=== PATIENT | female | born 1960 | race Caucasian/White ===

== ENCOUNTER 2018-03-27 05:22 | Inpatient (IN) | payer OTHER ==
[2018-03-19 16:17] LABS: CLARITY,URINE SLIGHTLY CLOUDY (Clear); COLOR,URINE YELLOW (Yellow); GLUCOSE, URINE NEGATIVE (Neg); KETONES,URINE NEGATIVE (Neg); LEUKOCYTE ESTERASE ,URINE NEGATIVE (Neg); NITRITES, URINE NEGATIVE (Neg); OCCULT BLOOD,URINE TRACE-INTACT (Neg); PH,URINE 5.5 (4.8-8.0); PROTEIN,URINE NEGATIVE (Neg); UROBILINOGEN,URINE 0.2 E.U/dL (0.2-1.0)
[2018-03-19 16:19] LABS: UA COLLECTION TYPE CLN CATCH MIDSTREAM
[2018-03-19 16:19] LABS: BASOPHILS # (AUTO) 0.1 X10'3 (0-0.2); EOSINOPHILS # (AUTO) 0.2 X10'3 (0-0.9); EOSINOPHILS % (AUTO) 3.6 % (0-6); LYMPHOCYTES # (AUTO) 1.9 X10'3 (1.1-4.8); LYMPHOCYTES % (AUTO) 32.2 % (21-51); MEAN CORPUSCULAR HEMOGLOBIN 29.6 PG (27.0-31.0); MEAN CORPUSCULAR HGB CONC 33.6 % (33.0-36.5); MEAN PLATELET VOLUME 9.2 FL (7.4-10.4); MONOCYTES # (AUTO) 0.4 X10'3 (0-0.9); NEUTROPHILS # (AUTO) 3.3 X10'3 (1.8-7.7); NEUTROPHILS % (AUTO) 56.2 % (42-75); PRE OP HEMATOCRIT 45.4 % (35.0-45.0); PRE OP HEMOGLOBIN 15.3 g/dL (12.0-16.0); PRE OP PLATELET COUNT 308 X10'3 (140-440); RED BLOOD COUNT 5.16 X10'6 (4.20-5.60); RED CELL DISTRIBUTION WIDTH 13.7 % (11.5-14.5)
[2018-03-19 16:22] LABS: BACTERIA,URINE FEW /HPF (Neg); MUCUS STRANDS FEW /LPF (Neg); RBC,URINE 0-2 /HPF (0-2); SQUAMOUS EPITHELIAL CELL,UR MODERATE /LPF (FEW); WBC,URINE 0-4 /HPF (0-4)
[2018-03-19 16:40] LABS: ALBUMIN 3.8 G/DL (3.4-5.0); ALKALINE PHOSPHATASE 173 IU/L (46-116); BLOOD UREA NITROGEN 14 MG/DL (7-18); BUN/CREATININE RATIO 20.6 (6.6-38.0); CALCIUM 8.9 MG/DL (8.5-10.1); CHLORIDE 104 MMOL/L (99-107); CREATININE 0.68 MG/DL (0.40-0.90); PRE OP ALT 41 U/L (30-65); PRE OP ANION GAP 9 (8-16); PRE OP AST 25 U/L (10-37); PRE OP BILIRUB, TOTAL 0.4 MG/DL (0.0-1.0); PRE OP GLUCOSE 92 MG/DL (70-104); PRE OP POTASSIUM 3.8 MMOL/L (3.4-5.1); PRE OP SODIUM 141 MMOL/L (135-145); TOTAL CARBON DIOXIDE 28.1 MMOL/L (24-32); TOTAL PROTEIN 7.6 G/DL (6.4-8.2); eGFR 90 ML/MIN
[2018-03-19 16:41] LABS: PRE OP PROTIME 10.1 SECONDS (9.0-12.0)
[2018-03-27] VITALS (25 sets, daily range): BP systolic 93–127; BP diastolic 45–80
[~2018-03-27] VITALS: Ht 182.9 cm; Wt 111.8 kg
[~2018-03-27 05:22] MED LIST: CELE-193 PO; ringers solution, lacted 1,000 ML IV SCH
[2018-03-27] MEDS ORDERED: ceFAZolin inj. 2,000 MG in dextrose 5%-water 100 ML IV ONE (05:30)
[2018-03-27] MEDS ORDERED: VANCOMYCIN INJ 1000 MG in NORMAL SALINE 250ml IV.SOLN IV ONE (05:30)
[2018-03-27] MEDS ORDERED: famotidine 20mg tablet PO ONE (05:30)
[2018-03-27] MEDS ORDERED: fentaNYL/PF 50MCG/1 ML 2ML syringe ONE (07:26)
[2018-03-27] MEDS ORDERED: MIDAZolam 1mg/ml 10ml vial ONE (07:26)
[2018-03-27] MEDS ORDERED: ROPIVAcaine inj 200 MG in normal saline 100ml IV soln 60 ML IU ONE (07:30)
[2018-03-27] MEDS ORDERED: propofol inj 20 ML IV ONE (07:56)
[2018-03-27] MEDS ORDERED: ondansetron/PF 4mg/2ml inj IV PRN (09:35)
[2018-03-27] MEDS ORDERED: meperidine/PF 25mg/ml syringe IV PRN ×3 (09:35)
[2018-03-27] MEDS ORDERED: proCHLORperazine 10 MG/2 ml inj IV PRN (09:35)
[2018-03-27] MEDS ORDERED: morphine 4 MG/ML inj SYRINge IV PRN ×2 (09:35)
[2018-03-27] MEDS ORDERED: ringers solution, lacted 1,000 ML IV SCH (09:35)
[2018-03-27] MEDS ORDERED: magnesium hydroxide 30ml (MOM) UD suspension PO PRN (10:40)
[2018-03-27] MEDS ORDERED: HYDROcodone/acetaminophen 10/325mg tab PO PRN (10:40)
[2018-03-27] MEDS ORDERED: CADD PCA waste documentation MC PRN (10:40)
[2018-03-27] MEDS ORDERED: bisacodyl 10mg suppository rectal RC PRN (10:40)
[2018-03-27] MEDS ORDERED: diphenhydrAMINE 25mg capsule PO PRN (10:40)
[2018-03-27] MEDS ORDERED: acetaminophen 325mg tablet PO PRN (10:40)
[2018-03-27] MEDS ORDERED: mag hydrox/Alum hydrox/simeth 30ml oral suspension PO PRN (10:40)
[2018-03-27] MEDS ORDERED: naloxone 0.4 mg/ml inj IV PRN (10:40)
[2018-03-27] MEDS ORDERED: metoclopramide 5 mg/ml inj IV PRN (10:40)
[2018-03-27] MEDS ORDERED: ROPIVAcaine 0.2%/PF PAIN PUMP 550 ML IJ SCH (10:52)
--- NOTE | 2018-03-27 10:52 | NUR ---
Received from OR via BED, accompanied by Anesthesiologist DR MORIN and report given by Anesthesiolgist. PT DROWSY, APPROPRIATE, DENIES PAIN, LEFT KNEE W/DRSG, LEG WRAP, ICE PACK CDI, DERMATONE LEVEL T-12. Addendum: 03/27/18 at 1123 by Danna Kenney RN Amended: Links added.
[2018-03-27] MEDS ORDERED: ceFAZolin 1GM/D5W- ADD-VANTAGE 50 ML IV ONE (10:55)
[2018-03-27] MEDS ORDERED: HYDROmorphone/NS 1 mg/ml CADD 50 ML IV SCH (11:00)
[2018-03-27] MEDS: HYDROmorphone/NS 1 mg/ml CADD 50 ML IV SCH ×7 (11:39→23:00)
--- NOTE | 2018-03-27 12:42 | NUR ---
Report called to receiving nurse. Transferred IN STABLE CONDITION via BED ON TELE #15, 1 BAG OF PT Belongings, GLASSES SENT W/PT TO ROOM 4021B, RECEIVING RN AT BEDSIDE TO RECEIVE PT, BLL, CALL LIGHT GIVEN, SIDE RAILS UP X 2, FAMILY AT BEDSIDE. Special Issues communicated to receiving nurse. YES, Addendum: 03/27/18 at 1300 by Danna Kenney RN Amended: Links added.
--- NOTE | 2018-03-27 12:45 | NUR ---
I received report from Danna in Recovery.
[2018-03-27] MEDS: ondansetron/PF 4mg/2ml inj IV PRN (13:21)
--- NOTE | 2018-03-27 14:00 | NUR ---
ON-Q pump setting adjusted to 10 ml/hr due to increased pain of 8 out of 10.
[2018-03-27] MEDS: gabapentin 300mg capsule PO SCH ×2 (15:18→19:52)
[2018-03-27] MEDS: acetaminophen 325mg tablet PO SCH ×2 (15:19→19:53)
[2018-03-27] MEDS: potassium cl 20mEq in 1/2 NS 1,000 ML IV SCH ×2 (16:04→23:30)
--- NOTE | 2018-03-27 17:21 | NUR ---
ON- Q pump adjusted to 12 ml/hr due to increased pain of 8 out of 10.
[2018-03-27] MEDS: HYDROcodone/acetaminophen 10/325mg tab PO PRN (17:34)
--- NOTE | 2018-03-27 18:20 | NUR ---
Patient in room ORTHO 4012. I have received report from TARAS Alanis and had the opportunity to ask questions and assume patient care.
--- NOTE | 2018-03-27 18:29 | NUR ---
Problems reprioritized. Patient report given, questions answered & plan of care reviewed with Tesha GRAJEDA.
[2018-03-27] MEDS: sennosides/docusate sodium tablet PO SCH (19:53)
[2018-03-27] MEDS: ceFAZolin 1GM/D5W- ADD-VANTAGE 50 ML IV SCH (19:53)
[2018-03-27] MEDS ORDERED: vancomycin/NS 1 GM ADD-VANTAGE 250 ML IV SCH (20:00)
[2018-03-27] MEDS: sennosides 8.6mg tablet PO SCH (20:03)
--- NOTE | 2018-03-27 21:00 | NUR ---
Pt. Left foot tangled with nursing.
[2018-03-28] VITALS (9 sets, daily range): BP systolic 90–112; BP diastolic 42–75
[2018-03-28] MEDS: HYDROmorphone/NS 1 mg/ml CADD 50 ML IV SCH ×3 (01:00→05:00)
[2018-03-28] MEDS: potassium cl 20mEq in 1/2 NS 1,000 ML IV SCH ×3 (02:16→17:26)
[2018-03-28] MEDS: acetaminophen 325mg tablet PO SCH (02:17)
[2018-03-28] MEDS: ceFAZolin 1GM/D5W- ADD-VANTAGE 50 ML IV SCH (04:02)
--- NOTE | 2018-03-28 06:05 | NUR ---
Problems reprioritized. Patient report given, questions answered & plan of care reviewed with TARAS Powell.
--- NOTE | 2018-03-28 06:34 | NUR ---
I have received patient report from Tesha GRAJEDA
[2018-03-28 06:39] LABS: BASOPHILS % (AUTO) 0.3 % (0-1); EOSINOPHILS # (AUTO) 0.1 X10'3 (0-0.9); EOSINOPHILS % (AUTO) 1.5 % (0-6); HEMATOCRIT 32.3 % (35.0-45.0); HEMOGLOBIN 11.1 g/dl (12.0-16.0); LYMPHOCYTES # (AUTO) 0.8 X10'3 (1.1-4.8); LYMPHOCYTES % (AUTO) 9.3 % (21-51); MEAN CORPUSCULAR HEMOGLOBIN 30.2 PG (27.0-31.0); MEAN CORPUSCULAR HGB CONC 34.5 g/dL (33.0-36.5); MEAN CORPUSCULAR VOLUME 87.7 FL (78-98); MEAN PLATELET VOLUME 9.2 FL (7.4-10.4); MONOCYTES # (AUTO) 0.6 X10'3 (0-0.9); MONOCYTES % (AUTO) 7.1 % (2-12); NEUTROPHILS # (AUTO) 7.4 X10'3 (1.8-7.7); NEUTROPHILS % (AUTO) 81.8 % (42-75); PLATELET COUNT 196 X10'3 (140-440); RED BLOOD COUNT 3.68 X10'6 (4.20-5.60); RED CELL DISTRIBUTION WIDTH 13.5 % (11.5-14.5); WHITE BLOOD COUNT 9.1 X10'3 (4.5-11.0)
[2018-03-28 06:43] LABS: ANION GAP 6 (8-16); CHLORIDE 104 MMOL/L (99-107); SODIUM 136 MMOL/L (135-145)
[2018-03-28] MEDS: ondansetron/PF 4mg/2ml inj IV PRN (07:17)
[2018-03-28] MEDS: gabapentin 300mg capsule PO SCH ×3 (07:17→20:10)
[2018-03-28] MEDS: multivitamins, therapeutics tablet PO SCH (07:17)
[2018-03-28] MEDS: sennosides/docusate sodium tablet PO SCH ×2 (07:17→20:10)
[2018-03-28] MEDS: HYDROcodone/acetaminophen 10/325mg tab PO PRN ×4 (07:17→20:11)
[2018-03-28] MEDS: enoxaparin 40mg/0.4ml syringe SQ SCH (07:18)
[2018-03-28] MEDS ORDERED: acetaminophen 325mg tablet PO PRN (08:45)
[2018-03-28] MEDS: HYDROmorphone inj. 0.5 MG/0.5 ML DISP.SYRIN IV PRN ×2 (08:52→17:29)
--- NOTE | 2018-03-28 15:22 | NUR ---
Joint replacement consult: Pt seen by SOILA for written/verbal high protein ed. SOILA reviewed high protein needs for wound healing, immune strength, high protein foods, and protein supplementation options. SOILA contact information provided in case of further questions. Pt agrees to taj victoria/ alvaro RYAN; SOILA d/w dietary. Addendum: 03/28/18 at [address] Amended: Links added.
--- NOTE | 2018-03-28 18:11 | NUR ---
Patient in room ORTHO 4012. I have received report from TARAS Powell and had the opportunity to ask questions and assume patient care.
--- NOTE | 2018-03-28 18:33 | NUR ---
I have given patient report to Tesha GRAJEDA
[2018-03-28] MEDS: sennosides 8.6mg tablet PO SCH (21:00)
[2018-03-29] MEDS: potassium cl 20mEq in 1/2 NS 1,000 ML IV SCH ×3 (01:29→23:30)
[2018-03-29] MEDS: HYDROcodone/acetaminophen 10/325mg tab PO PRN ×5 (03:58→20:31)
--- NOTE | 2018-03-29 05:43 | NUR ---
[facility]MOV[facility] AND Sky D/C
--- NOTE | 2018-03-29 06:09 | NUR ---
Problems reprioritized. Patient report given, questions answered & plan of care reviewed with TARAS Powell.
--- NOTE | 2018-03-29 06:21 | NUR ---
I have received patient report from Tesha GRAJEDA
[2018-03-29 06:57] LABS: BASOPHILS % (AUTO) 0.2 % (0-1); EOSINOPHILS % (AUTO) 0.1 % (0-6); HEMATOCRIT 30.7 % (35.0-45.0); HEMOGLOBIN 10.4 g/dl (12.0-16.0); LYMPHOCYTES # (AUTO) 0.6 X10'3 (1.1-4.8); LYMPHOCYTES % (AUTO) 6.6 % (21-51); MEAN CORPUSCULAR HEMOGLOBIN 29.7 PG (27.0-31.0); MEAN CORPUSCULAR HGB CONC 33.9 g/dL (33.0-36.5); MEAN CORPUSCULAR VOLUME 87.6 FL (78-98); MEAN PLATELET VOLUME 9.7 FL (7.4-10.4); MONOCYTES # (AUTO) 0.7 X10'3 (0-0.9); MONOCYTES % (AUTO) 7.8 % (2-12); NEUTROPHILS # (AUTO) 7.7 X10'3 (1.8-7.7); NEUTROPHILS % (AUTO) 85.3 % (42-75); PLATELET COUNT 177 X10'3 (140-440); RED CELL DISTRIBUTION WIDTH 13.6 % (11.5-14.5); WHITE BLOOD COUNT 9.1 X10'3 (4.5-11.0)
[2018-03-29] MEDS: multivitamins, therapeutics tablet PO SCH (08:07)
[2018-03-29] MEDS: enoxaparin 40mg/0.4ml syringe SQ SCH (08:07)
[2018-03-29] MEDS: gabapentin 300mg capsule PO SCH ×3 (08:07→20:31)
[2018-03-29] MEDS: sennosides/docusate sodium tablet PO SCH ×2 (08:07→20:00)
[2018-03-29 10:00] VITALS: BP 111/65
[2018-03-29] MEDS ORDERED: ENOX40DI11 SQ (10:53)
[2018-03-29 18:00] VITALS: BP 94/56
--- NOTE | 2018-03-29 18:30 | NUR ---
Patient in room ORTHO 4012. I have received report from TARAS Powell and had the opportunity to ask questions and assume patient care.
--- NOTE | 2018-03-29 18:33 | NUR ---
I gave patient report to Tesha GRAJEDA
[2018-03-29] MEDS: sennosides 8.6mg tablet PO SCH (20:31)
[2018-03-29 22:00] VITALS: BP 144/54
[2018-03-29] MEDS: diphenhydrAMINE 25mg capsule PO PRN (23:28)
[2018-03-30 06:00] VITALS: BP 113/62
--- NOTE | 2018-03-30 06:09 | NUR ---
Problems reprioritized. Patient report given, questions answered & plan of care reviewed with TARAS Levy.
--- NOTE | 2018-03-30 06:11 | NUR ---
received report from lucas mireles
[2018-03-30 06:41] LABS: BASOPHILS % (AUTO) 0.4 % (0-1); EOSINOPHILS # (AUTO) 0.2 X10'3 (0-0.9); EOSINOPHILS % (AUTO) 2.8 % (0-6); HEMATOCRIT 29.3 % (35.0-45.0); HEMOGLOBIN 10.1 g/dl (12.0-16.0); LYMPHOCYTES # (AUTO) 0.9 X10'3 (1.1-4.8); LYMPHOCYTES % (AUTO) 11.3 % (21-51); MEAN CORPUSCULAR HGB CONC 34.4 g/dL (33.0-36.5); MEAN CORPUSCULAR VOLUME 87.4 FL (78-98); MEAN PLATELET VOLUME 9.3 FL (7.4-10.4); MONOCYTES # (AUTO) 0.7 X10'3 (0-0.9); MONOCYTES % (AUTO) 9.4 % (2-12); NEUTROPHILS # (AUTO) 6.1 X10'3 (1.8-7.7); NEUTROPHILS % (AUTO) 76.1 % (42-75); PLATELET COUNT 175 X10'3 (140-440); RED BLOOD COUNT 3.36 X10'6 (4.20-5.60); RED CELL DISTRIBUTION WIDTH 14.1 % (11.5-14.5)
[2018-03-30] MEDS: multivitamins, therapeutics tablet PO SCH (08:24)
[2018-03-30] MEDS: HYDROcodone/acetaminophen 10/325mg tab PO PRN ×2 (08:24→12:29)
[2018-03-30] MEDS: sennosides/docusate sodium tablet PO SCH (08:25)
[2018-03-30] MEDS: gabapentin 300mg capsule PO SCH ×2 (08:25→12:29)
[2018-03-30] MEDS: enoxaparin 40mg/0.4ml syringe SQ SCH (08:26)
[2018-03-30] MEDS: potassium cl 20mEq in 1/2 NS 1,000 ML IV SCH (08:37)
[2018-03-30 10:00] VITALS: BP 115/61
[2018-03-30] MEDS: diphenhydrAMINE 25mg capsule PO PRN (13:46)
--- NOTE | 2018-03-30 14:30 | NUR ---
pt d/c with instructions, understanding of instructions, and with all belongings including powder packs and extra august dressing in wheelchair accompanied by fam member to private vehicle to f/u w/surgeon
== END 2018-03-30 14:30 | disposition home or self-care (01) | DRG 470 ==
LOC: PAS IN 05:22 → EDSTATUS 07:30 → ORTHO 4S 12:45
PROVIDERS: ADMIT Orthopaedic Surgery; ATTEND Orthopaedic Surgery
PROC: 3E0T3BZ Introduction of Anesthetic Agent into Peripheral Nerves and Plexi, Percutaneous Approach (ICD-10-PCS; 2018-03-27)
PROC: 0SRD0J9 Replacement of Left Knee Joint with Synthetic Substitute, Cemented, Open Approach (ICD-10-PCS; principal; 2018-03-27 07:18)
DX: M17.12 Unilateral primary osteoarthritis, left knee (principal); D62 Acute posthemorrhagic anemia
CPT/HCPCS: 36415; 80051; 80053; 81001; 82948; 85025; 85610; 85730; 87070; 97110; 97116; 97162; 97530; A6250; A6258; A6449; A7000; C1713; C1758; C1776; G0378; J0690; J1170; J1650; J2250; J2405; J2704; J2795; J3010; J3370; J7030; J7060; J7120; Q0163

== ENCOUNTER 2018-11-20 05:26 | Inpatient (IN) | payer OTHER ==
[2018-11-12 11:13] LABS: CLARITY,URINE CLEAR (Clear); COLOR,URINE YELLOW (Yellow); GLUCOSE, URINE NEGATIVE (Neg); KETONES,URINE NEGATIVE (Neg); LEUKOCYTE ESTERASE ,URINE NEGATIVE (Neg); NITRITES, URINE NEGATIVE (Neg); OCCULT BLOOD,URINE NEGATIVE (Neg); PH,URINE 5.5 (4.8-8.0); PROTEIN,URINE NEGATIVE (Neg); UROBILINOGEN,URINE 0.2 E.U/dL (0.2-1.0)
[2018-11-12 11:16] LABS: UA COLLECTION TYPE CLN CATCH MIDSTREAM
[2018-11-12 11:24] LABS: BASOPHILS % (AUTO) 1.1 % (0-1); EOSINOPHILS # (AUTO) 0.1 X10'3 (0-0.9); EOSINOPHILS % (AUTO) 1.8 % (0-6); LYMPHOCYTES # (AUTO) 1.3 X10'3 (1.1-4.8); MEAN CORPUSCULAR HEMOGLOBIN 29.8 PG (27.0-31.0); MEAN CORPUSCULAR HGB CONC 33.9 g/dL (33.0-36.5); MEAN CORPUSCULAR VOLUME 87.9 FL (78-98); MEAN PLATELET VOLUME 8.9 FL (7.4-10.4); MONOCYTES # (AUTO) 0.3 X10'3 (0-0.9); MONOCYTES % (AUTO) 7.2 % (2-12); NEUTROPHILS % (AUTO) 62.9 % (42-75); PRE OP HEMATOCRIT 45.3 % (35.0-45.0); PRE OP HEMOGLOBIN 15.3 g/dL (12.0-16.0); PRE OP PLATELET COUNT 311 X10'3 (140-440); RED BLOOD COUNT 5.15 X10'6 (4.20-5.60); RED CELL DISTRIBUTION WIDTH 14.1 % (11.5-14.5)
[2018-11-12 11:36] LABS: ALBUMIN 3.8 G/DL (3.4-5.0); ALBUMIN/GLOBULIN RATIO 1.1 (1.1-1.5); ALKALINE PHOSPHATASE 145 IU/L (46-116); BLOOD UREA NITROGEN 13 MG/DL (7-18); BUN/CREATININE RATIO 20.6 (6.6-38.0); CALCIUM 8.9 MG/DL (8.5-10.1); CHLORIDE 108 MMOL/L (99-107); CREATININE 0.63 MG/DL (0.40-0.90); PRE OP ALT 42 U/L (30-65); PRE OP ANION GAP 4 (8-16); PRE OP AST 27 U/L (10-37); PRE OP BILIRUB, TOTAL 0.7 MG/DL (0.0-1.0); PRE OP GLUCOSE 79 MG/DL (70-104); PRE OP POTASSIUM 3.9 MMOL/L (3.4-5.1); PRE OP SODIUM 142 MMOL/L (135-145); TOTAL CARBON DIOXIDE 29.7 MMOL/L (24-32); TOTAL PROTEIN 7.3 G/DL (6.4-8.2); eGFR > 90 ML/MIN
[2018-11-20] VITALS (18 sets, daily range): BP systolic 101–137; BP diastolic 49–111
[~2018-11-20] VITALS: Ht 182.9 cm; Wt 110.0 kg
[~2018-11-20 05:26] MED LIST changes: +CALC500T11 PO; -CELE-193 PO; +HALLS COUGH DROPS; +HYDR-4353 PO; +MV-M1TAB32; +NAPR-56 PO; +ZICAM; -ringers solution, lacted 1,000 ML IV SCH
[2018-11-20] MEDS ORDERED: famotidine 20mg tablet PO ONE (05:30)
[2018-11-20] MEDS ORDERED: cefazolin/dext.iso 2gm/50ml 50 ML IV ONE (05:30)
[2018-11-20] MEDS ORDERED: ringers solution, lacted 1,000 ML IV SCH ×2 (05:30→09:08)
[2018-11-20] MEDS ORDERED: VANCOMYCIN INJ 1000 MG in NORMAL SALINE 250ml IV.SOLN IV ONE (05:30)
[2018-11-20] MEDS ORDERED: LIDOcaine 1% (10mg/ml) 2ml vial ONE (05:43)
[2018-11-20] MEDS ORDERED: ketorolac trometh. 30mg/ml inj. ONE (06:50)
[2018-11-20] MEDS ORDERED: ROPIVAcaine 0.5% (5mg/ml) 30ml vial ONE ×2 (06:50→09:59)
[2018-11-20] MEDS ORDERED: MIDAZolam 1mg/ml 10ml vial ONE (07:15)
[2018-11-20] MEDS ORDERED: fentaNYL/PF 50MCG/1 ML 2ML syringe ONE (07:16)
[2018-11-20] MEDS ORDERED: LIDOcaine 1%/PF 5ML 10 MG/ML VIAL ONE (07:30)
[2018-11-20] MEDS ORDERED: propofol inj 20 ML IV ONE (07:30)
[2018-11-20] MEDS ORDERED: meperidine/PF 25mg/ml syringe IV PRN ×3 (09:10)
[2018-11-20] MEDS ORDERED: morphine 4 MG/ML inj SYRINge IV PRN ×2 (09:10)
[2018-11-20] MEDS ORDERED: ondansetron/PF 4mg/2ml inj IV PRN ×2 (09:10→10:45)
[2018-11-20] MEDS ORDERED: proCHLORperazine 10 MG/2 ml inj IV PRN (09:10)
[2018-11-20] MEDS ORDERED: ceFAZolin 1000mg inj ONE (09:59)
[2018-11-20] MEDS ORDERED: dexamethasone sod phosphate 4mg/ml inj. ONE (09:59)
--- NOTE | 2018-11-20 10:40 | NUR ---
Received from OR via BED , accompanied by Anesthesiologist DR DIAL and report given by Anesthesiolgist. PATIENT WAKING UP, DENIES PAIN, V/S WNL, NEUROVASCULAR CHECKS INTACT, 18G PIV RUE , HEATHER DRESSING TO RIGHT KNEE CDI W/ HV AND COLD POWDER PACK ANDW/ SCD ON. F/C DRAINING CLEAR YELLOW URINE. SENSATION T-10 .
[2018-11-20] MEDS ORDERED: diphenhydrAMINE 25mg capsule PO PRN ×2 (10:45)
[2018-11-20] MEDS ORDERED: metoclopramide 5 mg/ml inj IV PRN (10:45)
[2018-11-20] MEDS ORDERED: magnesium hydroxide 30ml (MOM) UD suspension PO PRN (10:45)
[2018-11-20] MEDS ORDERED: mag hydrox/Alum hydrox/simeth 30ml oral suspension PO PRN (10:45)
[2018-11-20] MEDS ORDERED: bisacodyl 10mg suppository rectal RC PRN (10:45)
[2018-11-20] MEDS ORDERED: acetaminophen 325mg tablet PO PRN (10:45)
[2018-11-20] MEDS ORDERED: HYDROcodone/acetaminophen 10/325mg tab PO PRN (10:45)
[2018-11-20] MEDS: ROPIVAcaine 0.2%/PF PAIN PUMP 550 ML IJ SCH (11:18)
--- NOTE | 2018-11-20 11:30 | NUR ---
PATIENT A&OX4, DENIES PAIN, V/S WNL, NEUROVASCULAR CHECKS INTACT, 18G PIV RUE , HEATHER DRESSING TO RIGHT KNEE CDI W/ HV AND COLD POWDER PACK AND W/ ON QUE BALL AT 6MG/HR SCD ON. F/C DRAINING CLEAR YELLOW URINE. SENSATION T-10 .PATIENT TAKEN TO ORTHO ON TELE WITH ALL BELONGINGS AND HOOKED UP TO MONITORS IN ROOM AND REPORT GIVEN TO GENERAL MAINTENANCE ENGINEER WHO HAS TAKEN OVER PATIENT CARE. .
[2018-11-20] MEDS: HYDROcodone/acetaminophen 10/325mg tab PO PRN ×3 (11:58→21:21)
[2018-11-20] MEDS: gabapentin 300mg capsule PO SCH ×2 (14:23→19:49)
[2018-11-20] MEDS: potassium cl 20mEq in 1/2 NS 1,000 ML IV SCH ×2 (16:03→18:43)
[2018-11-20] MEDS: ceFAZolin 1GM/D5W- ADD-VANTAGE 50 ML IV SCH ×2 (16:06→23:53)
[2018-11-20] MEDS: HYDROmorphone inj. 0.5 MG/0.5 ML DISP.SYRIN IV PRN (17:26)
--- NOTE | 2018-11-20 18:30 | NUR ---
Patient in room ORTHO 4012. I have received report from TARAS Perez and had the opportunity to ask questions and assume patient care.
[2018-11-20] MEDS: sennosides 8.6mg tablet PO SCH (19:49)
[2018-11-20] MEDS: ascorbic acid 500mg tablet PO SCH (19:49)
[2018-11-20] MEDS ORDERED: vancomycin/NS 1 GM ADD-VANTAGE 250 ML IV SCH (20:00)
[2018-11-21] VITALS (7 sets, daily range): BP systolic 94–115; BP diastolic 44–52
[2018-11-21] MEDS: potassium cl 20mEq in 1/2 NS 1,000 ML IV SCH ×3 (03:34→18:43)
[2018-11-21] MEDS ORDERED: normal saline 1000ml 1,000 ML IVB ONE (06:44)
--- NOTE | 2018-11-21 06:46 | NUR ---
Problems reprioritized. Patient report given, questions answered & plan of care reviewed with TARAS Winters.
--- NOTE | 2018-11-21 06:55 | NUR ---
Patient in room ORTHO 4012. I have received report from Tesha GRAJEDA and had the opportunity to ask questions and assume patient care.
[2018-11-21 06:57] LABS: BASOPHILS % (AUTO) 0.4 % (0-1); EOSINOPHILS % (AUTO) 0.1 % (0-6); HEMOGLOBIN 9.8 g/dl (12.0-16.0); LYMPHOCYTES # (AUTO) 0.5 X10'3 (1.1-4.8); LYMPHOCYTES % (AUTO) 6.1 % (21-51); MEAN CORPUSCULAR HEMOGLOBIN 30.1 PG (27.0-31.0); MEAN CORPUSCULAR HGB CONC 33.9 g/dL (33.0-36.5); MEAN CORPUSCULAR VOLUME 88.7 FL (78-98); MEAN PLATELET VOLUME 8.9 FL (7.4-10.4); MONOCYTES # (AUTO) 0.5 X10'3 (0-0.9); MONOCYTES % (AUTO) 5.9 % (2-12); NEUTROPHILS # (AUTO) 7.4 X10'3 (1.8-7.7); NEUTROPHILS % (AUTO) 87.5 % (42-75); PLATELET COUNT 191 X10'3 (140-440); RED BLOOD COUNT 3.27 X10'6 (4.20-5.60); RED CELL DISTRIBUTION WIDTH 13.5 % (11.5-14.5); WHITE BLOOD COUNT 8.5 X10'3 (4.5-11.0)
[2018-11-21 07:08] LABS: ANION GAP 5 (8-16); CHLORIDE 106 MMOL/L (99-107); POTASSIUM 4.5 MMOL/L (3.5-5.1); SODIUM 139 MMOL/L (135-145); TOTAL CARBON DIOXIDE 28.4 MMOL/L (24-32)
[2018-11-21] MEDS: multivitamins, therapeutics tablet PO SCH (08:10)
[2018-11-21] MEDS: ascorbic acid 500mg tablet PO SCH ×2 (08:10→20:56)
[2018-11-21] MEDS: gabapentin 300mg capsule PO SCH ×3 (08:10→20:55)
[2018-11-21] MEDS: enoxaparin 40mg/0.4ml syringe SQ SCH (08:11)
[2018-11-21] MEDS: HYDROcodone/acetaminophen 10/325mg tab PO PRN ×2 (13:24→17:14)
[2018-11-21] MEDS: HYDROmorphone inj. 0.5 MG/0.5 ML DISP.SYRIN IV PRN (14:55)
--- NOTE | 2018-11-21 18:23 | NUR ---
Problems reprioritized. Patient report given, questions answered & plan of care reviewed with Sherry GRAJEDA.
[2018-11-21] MEDS: celeCOXIB 100mg capsule PO SCH (20:56)
[2018-11-21] MEDS: sennosides 8.6mg tablet PO SCH (20:56)
[2018-11-22] MEDS: potassium cl 20mEq in 1/2 NS 1,000 ML IV SCH ×2 (00:06→07:57)
[2018-11-22] MEDS: HYDROcodone/acetaminophen 10/325mg tab PO PRN ×6 (00:08→21:19)
[2018-11-22 06:00] VITALS: BP 120/51
[2018-11-22 06:17] LABS: BASOPHILS % (AUTO) 0.8 % (0-1); EOSINOPHILS # (AUTO) 0.2 X10'3 (0-0.9); EOSINOPHILS % (AUTO) 3.3 % (0-6); HEMATOCRIT 24.9 % (35.0-45.0); HEMOGLOBIN 8.6 g/dl (12.0-16.0); LYMPHOCYTES # (AUTO) 0.8 X10'3 (1.1-4.8); LYMPHOCYTES % (AUTO) 13.1 % (21-51); MEAN CORPUSCULAR HEMOGLOBIN 30.5 PG (27.0-31.0); MEAN CORPUSCULAR HGB CONC 34.6 g/dL (33.0-36.5); MEAN CORPUSCULAR VOLUME 88.1 FL (78-98); MEAN PLATELET VOLUME 8.8 FL (7.4-10.4); MONOCYTES # (AUTO) 0.8 X10'3 (0-0.9); MONOCYTES % (AUTO) 12.7 % (2-12); NEUTROPHILS # (AUTO) 4.1 X10'3 (1.8-7.7); NEUTROPHILS % (AUTO) 70.1 % (42-75); PLATELET COUNT 164 X10'3 (140-440); RED BLOOD COUNT 2.83 X10'6 (4.20-5.60); RED CELL DISTRIBUTION WIDTH 13.6 % (11.5-14.5); WHITE BLOOD COUNT 5.9 X10'3 (4.5-11.0)
--- NOTE | 2018-11-22 06:30 | NUR ---
Problems reprioritized. Patient report given, questions answered & plan of care reviewed with TARAS De.
--- NOTE | 2018-11-22 06:46 | NUR ---
Patient in room ORTHO 4012. I have received report from Sherry GRAJEDA and had the opportunity to ask questions and assume patient care.
[2018-11-22] MEDS: calcium carbonate 500mg chew tablet PO PRN ×2 (07:55→21:18)
[2018-11-22] MEDS: ascorbic acid 500mg tablet PO SCH ×2 (07:55→21:20)
[2018-11-22] MEDS: celeCOXIB 100mg capsule PO SCH ×2 (07:56→21:20)
[2018-11-22] MEDS: multivitamins, therapeutics tablet PO SCH (07:56)
[2018-11-22] MEDS: enoxaparin 40mg/0.4ml syringe SQ SCH (07:56)
[2018-11-22] MEDS: gabapentin 300mg capsule PO SCH ×3 (07:56→21:20)
[2018-11-22 10:00] VITALS: BP 108/71
[2018-11-22] MEDS: ROPIVAcaine 0.2%/PF PAIN PUMP 550 ML IJ SCH (12:19)
--- NOTE | 2018-11-22 15:08 | NUR ---
Joint replacement: Pt seen at bedside provided with written and verbal protein education, written alternative write in menu, and RD contact information. Pt endorses a good appetite despite documented 25-50% PO intake of meal with 100% PO intake of milk on regular diet. Pt with food requests for upcoming meals that were d/w dietary. 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 Pt reports constipation with LBM 11/19 receiving routine bowel care however declines nutrition therapy for constipation at this time. Will continue to follow. Addendum: 11/22/18 at [address] Amended: Links added.
[2018-11-22 18:00] VITALS: BP 114/58
--- NOTE | 2018-11-22 18:41 | NUR ---
Problems reprioritized. Patient report given, questions answered & plan of care reviewed with Ronald GRAJEDA .
[2018-11-22] MEDS: sennosides 8.6mg tablet PO SCH (21:20)
[2018-11-22 22:00] VITALS: BP 105/51
[2018-11-23 07:28] LABS: BASOPHILS % (AUTO) 0.7 % (0-1); EOSINOPHILS # (AUTO) 0.2 X10'3 (0-0.9); HEMATOCRIT 27.6 % (35.0-45.0); HEMOGLOBIN 9.6 g/dl (12.0-16.0); LYMPHOCYTES # (AUTO) 0.8 X10'3 (1.1-4.8); LYMPHOCYTES % (AUTO) 11.9 % (21-51); MEAN CORPUSCULAR HEMOGLOBIN 30.4 PG (27.0-31.0); MEAN CORPUSCULAR HGB CONC 34.7 g/dL (33.0-36.5); MEAN CORPUSCULAR VOLUME 87.8 FL (78-98); MEAN PLATELET VOLUME 8.7 FL (7.4-10.4); MONOCYTES # (AUTO) 0.6 X10'3 (0-0.9); NEUTROPHILS # (AUTO) 4.9 X10'3 (1.8-7.7); NEUTROPHILS % (AUTO) 75.4 % (42-75); PLATELET COUNT 230 X10'3 (140-440); RED BLOOD COUNT 3.14 X10'6 (4.20-5.60); RED CELL DISTRIBUTION WIDTH 13.4 % (11.5-14.5); WHITE BLOOD COUNT 6.5 X10'3 (4.5-11.0)
[2018-11-23] MEDS: gabapentin 300mg capsule PO SCH ×2 (09:04→13:39)
[2018-11-23] MEDS: ascorbic acid 500mg tablet PO SCH (09:04)
[2018-11-23] MEDS: multivitamins, therapeutics tablet PO SCH (09:04)
[2018-11-23] MEDS: celeCOXIB 100mg capsule PO SCH (09:05)
[2018-11-23] MEDS: enoxaparin 40mg/0.4ml syringe SQ SCH (09:06)
[2018-11-23] MEDS: HYDROcodone/acetaminophen 10/325mg tab PO PRN (15:30)
--- NOTE | 2018-11-23 16:30 | NUR ---
DISCHARGE: VSS, HR in 90s, administered pain medications for 7/10 for ride home. Education on removal of HEATHER & ONQ pump. Written and verbal. Dressing to R hip, R knee CDI, no S/S infection noted. x2 powder packs DCd w/pt. Pt verbalized understanding. Pt denies SOB, resp distress, N/V, vertigo at DC. Escorted HERNAN in WC by [facility] staff & spouse. pt transferred safely into personal vehicle home. pt thanked [facility] staff for her care.
== END 2018-11-23 16:30 | disposition home or self-care (01) | DRG 470 ==
LOC: PAS IN 05:26 → EDSTATUS 07:30 → ORTHO 4S 11:30
PROVIDERS: ADMIT Orthopaedic Surgery; ATTEND Orthopaedic Surgery
PROC: 3E0T3BZ Introduction of Anesthetic Agent into Peripheral Nerves and Plexi, Percutaneous Approach (ICD-10-PCS; 2018-11-20)
PROC: 0SRC06Z Replacement of Right Knee Joint with Oxidized Zirconium on Polyethylene Synthetic Substitute, Open Approach (ICD-10-PCS; principal; 2018-11-20 07:12)
DX: M17.11 Unilateral primary osteoarthritis, right knee (principal); D62 Acute posthemorrhagic anemia; G89.4 Chronic pain syndrome; M54.2 Cervicalgia; M54.5 Low back pain; J44.9 Chronic obstructive pulmonary disease, unspecified; G43.909 Migraine, unspecified, not intractable, without status migrainosus; M54.16 Radiculopathy, lumbar region; E66.8 Other obesity; Z88.8 Allergy status to other drugs, medicaments and biological substances; Z68.32 Body mass index [BMI] 32.0-32.9, adult
CPT/HCPCS: Z7506; Z7508; 36415; 80051; 80053; 81003; 82948; 85025; 87081; 93005; 97110; 97116; 97162; 97530; A4618; A7000; C1713; C1758; C1776; G0378; J0690; J1100; J1170; J1650; J1885; J2001; J2250; J2405; J2704; J2795; J3010; J3370; J3480; J7030; J7120

== ENCOUNTER 2018-11-28 18:57 | Emergency (ER) | payer OTHER ==
[~2018-11-28] VITALS: Ht 182.9 cm; Wt 109.1 kg
[2018-11-28] MEDS ORDERED: fentaNYL/PF 50MCG/1 ML 2ML syringe IV ONE ×2 (20:05→22:00)
[2018-11-28] MEDS ORDERED: ondansetron/PF 4mg/2ml inj IV ONE (20:05)
[2018-11-28 20:20] LABS: BASOPHILS # (AUTO) 0.1 X10'3 (0-0.2); BASOPHILS % (AUTO) 0.8 % (0-1); EOSINOPHILS # (AUTO) 0.3 X10'3 (0-0.9); MONOCYTES # (AUTO) 0.9 X10'3 (0-0.9); NEUTROPHILS # (AUTO) 9.8 X10'3 (1.8-7.7)
[2018-11-28 20:22] LABS: EOSINOPHILS % (AUTO) 2.2 % (0-6); HEMATOCRIT 34.2 % (35.0-45.0); HEMOGLOBIN 11.4 g/dl (12.0-16.0); LYMPHOCYTES # (AUTO) 1.4 X10'3 (1.1-4.8); LYMPHOCYTES % (AUTO) 11.5 % (21-51); MEAN CORPUSCULAR HEMOGLOBIN 29.4 PG (27.0-31.0); MEAN CORPUSCULAR HGB CONC 33.4 g/dL (33.0-36.5); MEAN CORPUSCULAR VOLUME 88.1 FL (78-98); MEAN PLATELET VOLUME 7.8 FL (7.4-10.4); MONOCYTES % (AUTO) 7.3 % (2-12); NEUTROPHILS % (AUTO) 78.2 % (42-75); PLATELET COUNT 612 X10'3 (140-440); RED BLOOD COUNT 3.88 X10'6 (4.20-5.60); RED CELL DISTRIBUTION WIDTH 14.2 % (11.5-14.5); WHITE BLOOD COUNT 12.5 X10'3 (4.5-11.0)
[2018-11-28 20:36] LABS: ALANINE AMINOTRANSFERASE 66 U/L (12-78); ALBUMIN 3.4 G/DL (3.4-5.0); ALBUMIN/GLOBULIN RATIO 0.7 (1.1-1.5); ALKALINE PHOSPHATASE 318 IU/L (46-116); ANION GAP 13 (8-16); ASPARTATE AMINO TRANSFERASE 49 U/L (10-37); BLOOD UREA NITROGEN 11 MG/DL (7-18); BUN/CREATININE RATIO 14.3 (6.6-38.0); CALCIUM 9.5 MG/DL (8.5-10.1); CHLORIDE 100 MMOL/L (99-107); CREATININE 0.77 MG/DL (0.40-0.90); GLUCOSE 119 MG/DL (70-104); POTASSIUM 3.7 MMOL/L (3.5-5.1); SODIUM 140 MMOL/L (135-145); TOTAL CARBON DIOXIDE 27.2 MMOL/L (24-32); eGFR 78 ML/MIN
[2018-11-28 20:47] LABS: PARTIAL THROMBOPLASTIN TIME 27 SECONDS (22-32)
[2018-11-28 22:31] LABS: CLARITY,URINE CLEAR (Clear); COLOR,URINE YELLOW (Yellow); GLUCOSE, URINE NEGATIVE (Neg); KETONES,URINE NEGATIVE (Neg); LEUKOCYTE ESTERASE ,URINE NEGATIVE (Neg); NITRITES, URINE NEGATIVE (Neg); OCCULT BLOOD,URINE NEGATIVE (Neg); PH,URINE 5.5 (4.8-8.0); PROTEIN,URINE NEGATIVE (Neg); UROBILINOGEN,URINE 0.2 E.U/dL (0.2-1.0)
[2018-11-28 22:41] LABS: UA COLLECTION TYPE CLN CATCH MIDSTREAM
[2018-11-28] MEDS ORDERED: iohexol 350MG/ML 100ml bottle IV ONE (23:19)
[2018-11-29 00:32] VITALS: BP 106/59
[2018-11-29] MEDS ORDERED: ondansetron 4mg rapidly disintigrating tab PO ONE (00:35)
[2018-11-29] MEDS ORDERED: ONDA4TAB6 PO (00:38)
== END 2018-11-29 01:10 | disposition home or self-care (01) ==
LOC: ER 18:57
DX: M96.89 Other intraoperative and postprocedural complications and disorders of the musculoskeletal system (principal); R11.2 Nausea with vomiting, unspecified; G89.29 Other chronic pain; M19.90 Unspecified osteoarthritis, unspecified site; Z79.01 Long term (current) use of anticoagulants; Z96.652 Presence of left artificial knee joint; Z98.890 Other specified postprocedural states; Z79.899 Other long term (current) drug therapy; Z88.6 Allergy status to analgesic agent; Z88.8 Allergy status to other drugs, medicaments and biological substances
CPT/HCPCS: 36415; 71045; 71275; 80053; 81003; 83605; 83735; 84145; 85025; 85610; 85730; 87040; 96374; 96375; 96376; 99284; J2405; J3010; Q9967